=== PATIENT | male | born 1985 | race Hispanic/Latino ===

== ENCOUNTER → 2021-03-28 | Outpatient (CLI) | payer OTHER ==
[~2021-03-28] MED LIST: ASPIRIN81 MG PO; BUPIVACAINE HCL 0.5% INJ 30 ML VIAL INJ ONE; COREG12.5 MG PO; LABETALOL HCL 0 ML ONE; PANTOPRAZOLE SO40 MG PO; PRAVASTATIN SOD40 MG PO; SODIUM CHLORIDE 0.9% 50ML 0 ML ONE
== END | disposition home or self-care (01) ==
LOC: OR 06:47 → RAD 06:47 → EDSTATUS 07:30
PROVIDERS: ATTEND Specialist
DX: S83.241A Other tear of medial meniscus, current injury, right knee, initial encounter (principal); X58.XXXA Exposure to other specified factors, initial encounter; Z01.810 Encounter for preprocedural cardiovascular examination; Z01.812 Encounter for preprocedural laboratory examination; Z20.822 Contact with and (suspected) exposure to COVID-19; Z53.8 Procedure and treatment not carried out for other reasons
CPT/HCPCS: 93005; U0002; J0690